=== PATIENT | male | born 1995 | race Two or more races ===

== ENCOUNTER 2017-06-26 12:05 | Emergency (ER) | payer OTHER ==
--- NOTE | 2017-06-26 12:23 | EDPHY ---
H & P Time Seen by Provider: 06/26/17 12:21 HPI/ROS: CC: Neck pain x 2 days HPI: This 22 y/o male with no significant PMH presents to the ED after standing up under a metal slide while at work at the [employer] [employer]. He did not lose consciousness , no open wounds, no subsequent fall. However, he has had right lateral neck pain since the injury. ROS: Mild headache, no visual disturbances, no numbness/tingling or weakness in extremities, no other complaints. The remainder of a 10 Pt. ROS is normal. Past Medical/Surgical History: PMH: Denied PSH: Denied FH: Denied Allergy - Ibuprofen "throat closes" Meds: None Social History: + electronic cigarettes, rare ETOH, daily marijuana Smoking Status: Current every day smoker Physical Exam: Gen: A/O x 3 in NAD HEENT: NC/AT, PERRLA, EOMI, TMs clear no hemotympanum, oropharynx clear Neck: supple, +TTP right lateral neck diffusely, no oralia step-offs, no midline pain Heart: RRR Lungs: CTAB Abd: s/nt Extremities: atraumatic, no bony abnormality Neuro: CN-II-XII GI, CMS intact BUE, Strength 5/5 BUE Constitutional: Initial Vital Signs Temperature (C) 98.6 F 06/26/17 12:10 Heart Rate 77 06/26/17 12:10 Respiratory Rate 16 06/26/17 12:10 Blood Pressure 108/64 06/26/17 12:10 O2 Sat (%) 98 06/26/17 12:10 O2 Delivery Mode Room Air Allergies/Adverse Reactions: ibuprofen Allergy (Verified 06/26/17 12:13) Anaphylaxis Home Medications: Medication Instructions Recorded NK [No Known Home Meds] 06/26/17 Medical Decision Making - Diagnostics Imaging Results: C-Spine: normal c-spine filmes ED Course/Re-evaluation: The patient was seen and examined. VS reviewed. No indication for head CT. Pain films of C-spine negative. Patient to follow up with PCP or [facility]. Differential Diagnosis: DDX considered for but not limited to: Head contusion, neck sprain, compression fracture Departure - Departure Disposition: Home, Routine, Self-Care Clinical Impression: Head contusion, Neck pain on right side Condition: Good Instructions: Cervical Strain (ED), Scalp Contusion in Adults (ED) Additional Instructions: Follow up with your primary care provider is symptoms persist or return to the ER sooner if worse as discussed. Referrals: NONE *PRIMARY CARE P,. [Primary Care Provider] - As per Instructions Stand Alone Forms: Work Limited Duty
[2017-06-26 14:21] VITALS: BP 118/78; PULSE 74; RESP 18; TEMP 98; O2SAT 97
== END 2017-06-26 14:17 | disposition home or self-care (01) ==
LOC: CED 12:05
DX: S19.9XXA Unspecified injury of neck, initial encounter (principal); S00.83XA Contusion of other part of head, initial encounter; F17.200 Nicotine dependence, unspecified, uncomplicated; X50.1XXA Overexertion from prolonged static or awkward postures, initial encounter; Y92.69 Other specified industrial and construction area as the place of occurrence of the external cause
CPT/HCPCS: 72050-PO